=== PATIENT | male | born 1955 | race Caucasian/White ===

== ENCOUNTER → 2020-12-19 | Outpatient (CLI) | payer MEDICARE ==
[~2020-12-19] MED LIST: ASPIRIN CHEWABL81 MG PO; CHOLESTEROL PILL PO; COLACE 100MG C100 MG PO; NORCO 7.5-3251 EACH PO; ZESTRIL40 MG PO
== END ==
LOC: CT 09:30
DX: C7A.8 Other malignant neuroendocrine tumors (principal); N28.1 Cyst of kidney, acquired
CPT/HCPCS: Q9967